=== PATIENT | female | born 1990 | race Caucasian/White ===

== ENCOUNTER 2016-10-27 22:45 | Emergency (ER) | payer OTHER ==
[~2016-10-27 22:45] MED LIST: MOTR200T44 PO; PERCOCET PO
[2016-10-28] MEDS ORDERED: ONDANSETRON 4MG/2ML VIAL (J2405) As Ordered ONE (01:12)
[2016-10-28] MEDS ORDERED: PANTOPRAZOLE 40MG INJ (PROTONIX) (C9113) As Ordered ONE (01:12)
[2016-10-28 01:25] LABS: BASO % 0.2 % (0.0-1.0); EOS # 0.2 K/mm3 (0.0-0.50); EOS % 1.6 % (0.0-3.0); LARGE UNSTAINED CELL # 0.1 K/mm3 (0.0-0.4); LARGE UNSTAINED CELL % 0.7 % (0.0-4.0); LYMPH # 0.8 K/mm3 (1.5-6.5); LYMPH % 5.3 % (24.0-44.0); MEAN CORPUSCULAR HEMOGLOBIN 29.9 pg (27.0-33.0); MEAN CORPUSCULAR HGB CONC 32.4 g/dl (32.0-36.5); MEAN CORPUSCULAR VOLUME 92.1 fl (80.0-96.0); MONO # 0.5 K/mm3 (0.0-0.8); MONO % 3.4 % (0.0-5.0); NEUTROPHILS # 13.8 K/mm3 (1.8-7.7); NEUTROPHILS % 88.9 % (36.0-66.0); PLATELET COUNT, AUTOMATED 229 k/mm3 (150-450); RED CELL DISTRIBUTION WIDTH 12.4 % (11.5-14.5); WHITE BLOOD COUNT 15.6 K/mm3 (4.0-10.0)
[2016-10-28 02:05] LABS: ALBUMIN 4.4 GM/DL (3.2-5.2); ALBUMIN/GLOBULIN RATIO 1.26 (1.00-1.93); ALKALINE PHOSPHATASE 88 U/L (45-117); ALT/SGPT 27 U/L (12-78); AMYLASE 47 U/L (25-115); ANION GAP 8 MEQ/L (8-16); AST/SGOT 19 U/L (15-37); BILIRUBIN,DIRECT 0.2 MG/DL (0.0-0.2); BILIRUBIN,TOTAL 0.8 MG/DL (0.2-1.0); BLOOD UREA NITROGEN 13 MG/DL (7-18); CALCIUM LEVEL 8.9 MG/DL (8.5-10.1); CARBON DIOXIDE LEVEL 25 MEQ/L (21-32); CHLORIDE LEVEL 105 MEQ/L (98-107); CREATININE FOR GFR 0.94 MG/DL (0.55-1.02); GLOMERULAR FILTRATION RATE > 60.0 (>60); GLUCOSE, FASTING 121 MG/DL (70-105); POTASSIUM SERUM 3.8 MEQ/L (3.5-5.1); SODIUM LEVEL 138 MEQ/L (136-145); TOTAL PROTEIN 7.9 GM/DL (6.4-8.2)
--- NOTE | 2016-10-28 02:38 | EDDOCDS ---
Nurse's Notes [facility] Name: Lexus Webb Age: 26 yrs Sex: Female : 1990 Arrival Date: 10/27/2016 Time: 22:45 Bed I5 / M5 [facility] Diagnosis: Vomiting;Diarrhea, unspecified Presentation: 10/27 22:50 Presenting complaint: Patient states: Patient reports that she has been vomiting and jmb have diarrhea for past three hours. Adult Sepsis Screening: The patient does not have new or worsening altered mentation. Patient's respiratory rate is less than 22. Systolic blood pressure is greater than 100. Patient has a qSOFA score of 0- Negative Sepsis Screen. Suicide/Homicide risk assessment- the patient denies having any suicidal and/or homicidal ideations and does not present with any other emotional, behavioral or mental health complaints. Status: Patient is not a sales and service advisor or dependent. Transition of care: patient was not received from another setting of care. 22:50 Acuity: CAMERON Level 4 [facility] 22:50 Method Of Arrival: Walkin/Carried/Asstd [facility] Triage Assessment: 22:51 General: Appears in no apparent distress. Pain: Denies pain. Pt Declines HIV testing. b Neurological: Level of Consciousness is awake, alert, obeys commands, Oriented to person, place, time, Speech is normal, Facial symmetry appears normal, Facial symmetry: tongue is midline. Respiratory: Airway is patent Respiratory effort is even, unlabored, Respiratory pattern is regular, symmetrical. GI: Abdomen is non- distended. Derm: Skin is pink, warm & dry. Musculoskeletal: Range of motion intact in all extremities. 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 Dicyclomine Unknown Oral Unknown daily - PMHx: none; - PSHx: ; Carpal Tunnel Repair- Bilateral; Tonsillectomy; - Social history: Smoking status: Patient uses tobacco products, heavy tobacco smoker. No barriers to communication noted, The patient speaks fluent Welsh, Speaks appropriately for age. - Family history: Not pertinent. - : The pt / caregiver states he / she is not on anticoagulants. Home medication list is obtained from the patient. - Exposure Risk Screening:: None identified. Screenin/07 01:25 Screening information is obtained from the patient. Fall risk: No risks identified. jmb Assistance ADL's: requires no assistance with activities of daily living. Abuse/DV Screen: The patient / caregiver reports he/she is: not in a situation that causes fear, pain or injury. Nutritional screening: No deficits noted. home support is adequate. 02:35 Advance Directives: Currently, there is no health care proxy. lf1 Assessment: 01:25 General: Appears in no apparent distress, Behavior is appropriate for age, cooperative. jmb Neurological: Level of Consciousness is awake, alert, obeys commands, Oriented to person, place, time, Speech is normal, Facial symmetry appears normal, Facial symmetry: tongue is midline. Cardiovascular: Capillary refill < 3 seconds Heart tones S1 S2 present Pulses are all present. Rhythm is regular. Respiratory: Airway is patent Respiratory effort is even, unlabored, Respiratory pattern is regular, symmetrical, Breath sounds are clear bilaterally. GI: Abdomen is non- distended Bowel sounds present X 4 quads. Abd is soft X 4 quads. Derm: Skin is pink, warm & dry. Musculoskeletal: Range of motion intact in all extremities. 01:26 General: During assessment and start of IV, patient informed that there was no site for jmb access in left antecubital. Patient suggested potentially going in right antecubital. Patient informed that it would be easier to stay on left side since the baskets are on wall and potential for hitting head could occur by this publications writer even with the bed moved out. Patient had vein present on left wrist, inserted 20 gauge needle and prior to insertion patient encouraged not to tense up or move as it makes it more difficulty for insertion of IV. Patient accessed on one attempt with 20 gauge needle but during lab draw started crying and stated that it was the worst blood draw ever and that is why she would have preferred this publications writer to start IV in right antecubital. Patient never once stated that she would prefer otherwise prior to insertion when explained safety concern for right AC. After labs drawn this publications writer left room with no complaints. . 02:15 General: Appears comfortable, Behavior is cooperative. Pain: Denies pain. Neurological: lf1 Level of Consciousness is awake, alert, obeys commands, Oriented to person, place, time. EENT: No deficits noted. Respiratory: Respiratory effort is even, unlabored. GI: Reports nausea has improved. Derm: Skin is pink, warm & dry. 02:35 General: Appears in no apparent distress, comfortable, Behavior is cooperative. Pain: lf1 Denies pain. Neurological: Level of Consciousness is awake, alert. Respiratory: Respiratory effort is even, unlabored. GI: Denies nausea, vomiting. Vital Signs: 10/27 22:47 BP 133 / 73; Pulse 104; Resp 18; Temp 99.6(O); Pulse Ox 99% on R/A; Weight 81.65 kg; dem1 Height 5 ft. 9 in. (175.26 cm); Pain 5/10; 10/28 02:22 BP 138 / 70; Pulse 82; Resp 18; Temp 98.8; Pulse Ox 97% ; Pain 0/10; ajs 02 22:47 Body Mass Index 26.58 (81.65 kg, 175.26 cm) [facility] Vitals: 10/27 22:47 Log In Time: October 27, 2016 at 22:44. [facility] ED Course: 22:46 Patient visited by Clair Wetzel. dem1 22:46 [facility] is Private Physician. dem1 22:46 Patient moved to Waiting dem1 22:47 Patient visited by Clair Wetzel. dem1 22:47 Patient moved to Pre RCE dem1 22:50 Triage Initiated jmb 10/28 00:02 Patient moved to MTA Wait sls1 00:34 Patient moved to I5 / M5 andie 00:58 Herber[facility] Gu[facility]C [facility] ck7 00:58 Min Nicole DO is Attending Physician. ck7 00:58 Patient visited by Herberth Gupta RPA-C. ck7 01:25 The patient / caregiver is instructed regarding the plan of care and ED course. jmb 01:25 Inserted saline lock: 20 gauge in left hand and blood collected. Labs drawn. (by ED jmb staff). Sent per order to lab. 01:27 Patient visited by Derek Vinson RN. jmb 02:06 Patient visited by Herberth Gupta RPA-C. ck7 02:16 Patient visited by Suki Jones RN. lf1 02:20 [facility] is Referral Physician. ck7 02:23 Patient visited by Whitney Royal. [facility] 02:34 Patient visited by Suki Jones RN. lf1 02:35 Discontinued IV lock intact, bleeding controlled, pressure dressing applied, No lf1 redness/swelling at site. No procedures done that require assistance. Administered Medications: 01:26 Drug: NS 0.9% 1000 ml [sodium chloride 0.9 % intravenous solution] Route: IV; Rate: lf1 bolus; Site: left wrist; 02:35 Follow up: IV Status: Infusion discontinued; IV Intake: 900ml lf1 01:26 Drug: Ondansetron 4 mg [ondansetron HCl 2 mg/mL intravenous solution (2 mL)] Route: lf1 IVP; Site: left wrist; 02:35 Follow up: Response: Nausea is resolved lf1 01:26 Drug: pantoprazole 40 mg [pantoprazole 40 mg intravenous solution] Route: IV; Rate: lf1 bolus; Site: left wrist; 01:46 Follow up: IV Status: Completed infusion [facility] 02:34 Follow up: IV Status: Completed infusion lf1 Point of Care Testing: Urine : 02:15 hCG Reading: Negative; Control Reading: Positive; lf1 Ranges: Intake: 02:35 IV: 900.00ml; Total: 900.00ml. lf1 Order Results: Lab Order: Amylase; SPEC'M 10/28/16 01:18 Test: AMYLASE; Value: 47; Range: 25-115; Units: U/L; Status: F Lab Order: Basic Metabolic Profile; SPEC'M 10/28/16 01:18 Test: GLUCOSE, FASTING; Value: 121; Range: 70-105; Abnormal: Above high normal; Units: MG/DL; Status: F Test: BLOOD UREA NITROGEN; Value: 13; Range: 7-18; Units: MG/DL; Status: F Test: CREATININE FOR GFR; Value: 0.94; Range: 0.55-1.02; Units: MG/DL; Status: F Test: GLOMERULAR FILTRATION RATE; Value: > 60.0; Range: >60; Status: F Test: SODIUM LEVEL; Value: 138; Range: 136-145; Units: MEQ/L; Status: F Test: POTASSIUM SERUM; Value: 3.8; Range: 3.5-5.1; Units: MEQ/L; Status: F Test: CHLORIDE LEVEL; Value: 105; Range: 98-107; Units: MEQ/L; Status: F Test: CARBON DIOXIDE LEVEL; Value: 25; Range: 21-32; Units: MEQ/L; Status: F Test: ANION GAP; Value: 8; Range: 8-16; Units: MEQ/L; Status: F Test: CALCIUM LEVEL; Value: 8.9; Range: 8.5-10.1; Units: MG/DL; Status: F Test Note: ; Units are mL/min/1.73 m2 Chronic Kidney Disease Staging per NKF: Stage I & II GFR >=60 Normal to Mildly Decreased Stage III GFR 30-59 Moderately Decreased Stage IV GFR 15-29 Severely Decreased Stage V GFR <15 Very Little GFR Left ESRD GFR <15 on COLON AND RECTAL SURGEON Lab Order: CBC with Diff; SPEC'M 10/28/16 01:18 Test: WHITE BLOOD COUNT; Value: 15.6; Range: 4.0-10.0; Abnormal: Above high normal; Units: K/mm3; Status: F Test: RED BLOOD COUNT; Value: 5.13; Range: 4.00-5.40; Units: M/mm3; Status: F Test: HEMOGLOBIN; Value: 15.3; Range: 12.0-16.0; Units: g/dl; Status: F Test: HEMATOCRIT; Value: 47.2; Range: 36.0-47.0; Abnormal: Above high normal; Units: %; Status: F Test: MEAN CORPUSCULAR VOLUME; Value: 92.1; Range: 80.0-96.0; Units: fl; Status: F Test: MEAN CORPUSCULAR HEMOGLOBIN; Value: 29.9; Range: 27.0-33.0; Units: pg; Status: F Test: MEAN CORPUSCULAR HGB CONC; Value: 32.4; Range: 32.0-36.5; Units: g/dl; Status: F Test: RED CELL DISTRIBUTION WIDTH; Value: 12.4; Range: 11.5-14.5; Units: %; Status: F Test: PLATELET COUNT, AUTOMATED; Value: 229; Range: 150-450; Units: k/mm3; Status: F Test: NEUTROPHILS %; Value: 88.9; Range: 36.0-66.0; Abnormal: Above high normal; Units: %; Status: F Test: LYMPH %; Value: 5.3; Range: 24.0-44.0; Abnormal: Below low normal; Units: %; Status: F Test: MONO %; Value: 3.4; Range: 0.0-5.0; Units: %; Status: F Test: EOS %; Value: 1.6; Range: 0.0-3.0; Units: %; Status: F Test: BASO %; Value: 0.2; Range: 0.0-1.0; Units: %; Status: F Test: LARGE UNSTAINED CELL %; Value: 0.7; Range: 0.0-4.0; Units: %; Status: F Test: NEUTROPHILS #; Value: 13.8; Range: 1.8-7.7; Abnormal: Above high normal; Units: K/mm3; Status: F Test: LYMPH #; Value: 0.8; Range: 1.5-6.5; Abnormal: Below low normal; Units: K/mm3; Status: F Test: MONO #; Value: 0.5; Range: 0.0-0.8; Units: K/mm3; Status: F Test: EOS #; Value: 0.2; Range: 0.0-0.50; Units: K/mm3; Status: F Test: BASO #; Value: 0.0; Range: 0.0-0.2; Units: K/mm3; Status: F Test: LARGE UNSTAINED CELL #; Value: 0.1; Range: 0.0-0.4; Units: K/mm3; Status: F Lab Order: Lipase; SPEC'M 10/28/16 01:18 Test: LIPASE; Value: 109; Range: 73-393; Units: U/L; Status: F Lab Order: Liver Profile; SPEC'M 10/28/16 01:18 Test: AST/SGOT; Value: 19; Range: 15-37; Units: U/L; Status: F Test: ALT/SGPT; Value: 27; Range: 12-78; Units: U/L; Status: F Test: ALKALINE PHOSPHATASE; Value: 88; Range: 45-117; Units: U/L; Status: F Test: BILIRUBIN,TOTAL; Value: 0.8; Range: 0.2-1.0; Units: MG/DL; Status: F Test: BILIRUBIN,DIRECT; Value: 0.2; Range: 0.0-0.2; Units: MG/DL; Status: F Test: TOTAL PROTEIN; Value: 7.9; Range: 6.4-8.2; Units: GM/DL; Status: F Test: ALBUMIN; Value: 4.4; Range: 3.2-5.2; Units: GM/DL; Status: F Test: ALBUMIN/GLOBULIN RATIO; Value: 1.26; Range: 1.00-1.93; Status: F Outcome: 02:20 Discharge ordered by Provider. ck7 02:35 Discharge Assessment: Patient awake, alert and oriented x 3. No cognitive and/or lf1 functional deficits noted. Patient verbalized understanding of disposition instructions. Patient awake and alert. Oriented to person, place and time. Patient verbalized understanding of disposition instructions. Patient has no functional deficits. patient administered narcotics - no. The following High Risk Discharge criteria are identified: None. Discharged to home ambulatory, with friend. Condition: improved. Discharge instructions given to patient, Instructed on discharge instructions, follow up and referral plans. medication usage, diet, Demonstrated understanding of instructions, medications, Pt was receptive of discharge instructions/ teaching. Prescriptions given X 2. No special radiology studies were completed. Property :Personal belongings accompany Pt. 02:37 Patient left the ED. lf1 Signatures: Suki Jones,RN RN lf1 Sienna Martin, Whitney Mcintyre Shannon RN RN sls1 Clair Wetzel1 Herberth Gupta, RPA-C RPA-Cck7 Derek VinsonRN Pamela Montoya LPN LPN sl Corrections: (The following items were deleted from the chart) 10/27 22:52 22:51 Allergies: No known drug Allergies; ant cain 22:52 22:51 Home Meds: none; ant cain MTDD
--- NOTE | 2016-10-28 02:38 | EDDOCDS ---
Physician Documentation [facility] Name: Lexus Webb Age: 26 yrs Sex: Female : 1990 Arrival Date: 10/27/2016 Time: 22:45 Bed I5 / M5 Private [facility] Disposition: 10/28/16 02:20 Discharged to Home/Self Care. Impression: Vomiting, Diarrhea, unspecified. - Condition is Stable. - Discharge Instructions: Food Choices to Help Relieve Diarrhea, Adult, Diarrhea, Nausea and Vomiting. - Prescriptions for Prilosec 20 mg Oral Capsule - take 1 capsule by ORAL route once daily; 10 capsule. ZOFRAN ODT 4 mg - dissolve 1 tablet by ORAL route 4 times per day As needed do not chew, do not swallow whole; 10 tablet. - Medication Reconciliation, Local Pharmacy Hours form. - Follow up: [facility]; When: Tomorrow; Reason: Recheck today's complaints, Continuance of care. - Problem is new. - Symptoms have improved. - Notes: USE MEDICATIONS INSTRUTCED, FOLLOW UP WITH YOUR DOCTOR TOMORROW, RETURN TO THE ER IF THE SYMPTOMS WORSEN OR BECOME CONCERNING Historical: - Home Meds: 1. Dicyclomine Unknown Oral Unknown daily - PMHx: none; - PSHx: ; Carpal Tunnel Repair- Bilateral; Tonsillectomy; - Social history: Smoking status: Patient uses tobacco products, heavy tobacco smoker. No barriers to communication noted, The patient speaks fluent Turkmen, Speaks appropriately for age. - Family history: Not pertinent. - : The pt / caregiver states he / she is not on anticoagulants. Home medication list is obtained from the patient. - Exposure Risk Screening:: None identified. SUPERVISOR ADVICE: 10/27 22:52 LMP 10/20/2016 [facility] Vital Signs: 22:47 BP 133 / 73; Pulse 104; Resp 18; Temp 99.6(O); Pulse Ox 99% on R/A; Weight 81.65 kg / dem1 180.01 lbs; Height 5 ft. 9 in. (175.26 cm); Pain 5/10; 10/28 02:22 BP 138 / 70; Pulse 82; Resp 18; Temp 98.8; Pulse Ox 97% ; Pain 0/10; ajs 02/06 22:47 Body Mass Index 26.58 (81.65 kg, 175.26 cm) dem1 MDM: 01:04 Undress patient appropriately for examination ordered. ck7 01:04 IV Saline Lock ordered. ck7 01:04 NS 0.9% 1000 ml IV at bolus once ordered. ck7 01:04 Ondansetron 4 mg IVP once ordered. ck7 01:04 pantoprazole 40 mg IV at bolus once ordered. ck7 01:04 UCG by Nursing ordered. ck7 01:05 Amylase Ordered. EDMS 01:05 Basic Metabolic Profile Ordered. EDMS 01:05 CBC with Diff Ordered. EDMS 01:05 Lipase Ordered. EDMS 01:05 Liver Profile Ordered. EDMS 01:05 NOTHING BY MOUTH+DIET ordered. EDMS 01:29 Financial registration complete. pm4 02:14 Basic Metabolic Profile Reviewed. ck7 02:14 CBC with Diff Reviewed. ck7 02:14 Amylase Reviewed. ck7 02:14 Lipase Reviewed. ck7 02:14 Liver Profile Reviewed. ck7 Point of Care Testing: Urine : 02:15 hCG Reading: Negative; Control Reading: Positive; lf1 Ranges: Administered Medications: 01:26 Drug: NS 0.9% 1000 ml [sodium chloride 0.9 % intravenous solution] Route: IV; Rate: lf1 bolus; Site: left wrist; 02:35 Follow up: IV Status: Infusion discontinued; IV Intake: 900ml lf1 01:26 Drug: Ondansetron 4 mg [ondansetron HCl 2 mg/mL intravenous solution (2 mL)] Route: lf1 IVP; Site: left wrist; 02:35 Follow up: Response: Nausea is resolved lf1 01:26 Drug: pantoprazole 40 mg [pantoprazole 40 mg intravenous solution] Route: IV; Rate: lf1 bolus; Site: left wrist; 01:46 Follow up: IV Status: Completed infusion [facility] 02:34 Follow up: IV Status: Completed infusion lf1 Signatures: Dispatcher [employer] Suki Solorzano RN RN lf1 Herberth Gupta, RPA-C RPA-Cck7 Derek VinsonRN RN Michael Smith, Reg Reg pm4 Pamela Maynard LPN [facility] The chart was reviewed and I authenticate all verbal orders and agree with the evaluation and treatment provided.Corrections: (The following items were deleted from the chart) 10/27 2252 22:51 Allergies: No known drug Allergies; ant cain 22:51 Home Meds: none; ant cain DANKD
--- NOTE | 2016-10-30 03:39 | EDDOCDS ---
Physician Documentation [facility] Name: Lexus Webb Age: 26 yrs Sex: Female : 1990 Arrival Date: 10/27/2016 Time: 22:45 Bed I5 / M5 Private [facility] Disposition: 10/28/16 02:20 Discharged to Home/Self Care. Impression: Vomiting, Diarrhea, unspecified. - Condition is Stable. - Discharge Instructions: Food Choices to Help Relieve Diarrhea, Adult, Diarrhea, Nausea and Vomiting. - Prescriptions for Prilosec 20 mg Oral Capsule - take 1 capsule by ORAL route once daily; 10 capsule. ZOFRAN ODT 4 mg - dissolve 1 tablet by ORAL route 4 times per day As needed do not chew, do not swallow whole; 10 tablet. - Medication Reconciliation, Local Pharmacy Hours form. - Follow up: [facility]; When: Tomorrow; Reason: Recheck today's complaints, Continuance of care. - Problem is new. - Symptoms have improved. - Notes: USE MEDICATIONS INSTRUTCED, FOLLOW UP WITH YOUR DOCTOR TOMORROW, RETURN TO THE ER IF THE SYMPTOMS WORSEN OR BECOME CONCERNING Historical: - Home Meds: 1. Dicyclomine Unknown Oral Unknown daily - PMHx: none; - PSHx: ; Carpal Tunnel Repair- Bilateral; Tonsillectomy; - Social history: Smoking status: Patient uses tobacco products, heavy tobacco smoker. No barriers to communication noted, The patient speaks fluent Ethiopian, Speaks appropriately for age. - Family history: Not pertinent. - : The pt / caregiver states he / she is not on anticoagulants. Home medication list is obtained from the patient. - Exposure Risk Screening:: None identified. ELECTRICAL ELECTRONICS TECHNICIAN: 10/27 22:52 LMP 10/20/2016 [facility] Vital Signs: 22:47 BP 133 / 73; Pulse 104; Resp 18; Temp 99.6(O); Pulse Ox 99% on R/A; Weight 81.65 kg / dem1 180.01 lbs; Height 5 ft. 9 in. (175.26 cm); Pain 5/10; 10/28 02:22 BP 138 / 70; Pulse 82; Resp 18; Temp 98.8; Pulse Ox 97% ; Pain 0/10; ajs 02/06 22:47 Body Mass Index 26.58 (81.65 kg, 175.26 cm) dem1 MDM: 01:04 Undress patient appropriately for examination ordered. ck7 01:04 IV Saline Lock ordered. ck7 01:04 NS 0.9% 1000 ml IV at bolus once ordered. ck7 01:04 Ondansetron 4 mg IVP once ordered. ck7 01:04 pantoprazole 40 mg IV at bolus once ordered. ck7 01:04 UCG by Nursing ordered. ck7 01:05 Amylase Ordered. EDMS 01:05 Basic Metabolic Profile Ordered. EDMS 01:05 CBC with Diff Ordered. EDMS 01:05 Lipase Ordered. EDMS 01:05 Liver Profile Ordered. EDMS 01:05 NOTHING BY MOUTH+DIET ordered. EDMS 01:29 Financial registration complete. pm4 02:14 Basic Metabolic Profile Reviewed. ck7 02:14 CBC with Diff Reviewed. ck7 02:14 Amylase Reviewed. ck7 02:14 Lipase Reviewed. ck7 02:14 Liver Profile Reviewed. ck7 02:58 [facility] [place] Agreement was scanned into [employer] and attached to record. pm4 11:17 T-Sheet-- Draft Copy was scanned into MP[employer] and attached to record. Point of Care Testing: Urine : 02:15 hCG Reading: Negative; Control Reading: Positive; lf1 Ranges: Administered Medications: 01:26 Drug: NS 0.9% 1000 ml [sodium chloride 0.9 % intravenous solution] Route: IV; Rate: lf1 bolus; Site: left wrist; 02:35 Follow up: IV Status: Infusion discontinued; IV Intake: 900ml lf1 01:26 Drug: Ondansetron 4 mg [ondansetron HCl 2 mg/mL intravenous solution (2 mL)] Route: lf1 IVP; Site: left wrist; 02:35 Follow up: Response: Nausea is resolved lf1 01:26 Drug: pantoprazole 40 mg [pantoprazole 40 mg intravenous solution] Route: IV; Rate: lf1 bolus; Site: left wrist; 01:46 Follow up: IV Status: Completed infusion [facility] 02:34 Follow up: IV Status: Completed infusion lf1 Signatures: Dispatcher [employer] EDMS Catie Hahn, Reg Reg gb Suki Jones,BRAD RN lf1 Herberth Gupta RPA-C RPA-[facility]7 Derek Vinson,RN RN Michael Smith, Reg Reg pm4 Pamela Maynard LPN The chart was reviewed and I authenticate all verbal orders and agree with the evaluation and treatment provided.Corrections: (The following items were deleted from the chart) 10/27 22:52 22:51 Allergies: No known drug Allergies; ant cain 22:52 22:51 Home Meds: none; ant cain Attachments: 10/28 02:58 [facility] [place] Agreement pm4 11:17 T-Sheet-- Draft Copy gb Chart Complete MTDD
--- NOTE | 2016-10-30 03:39 | EDDOCDS ---
Nurse's Notes [facility] Name: Lexus Webb Age: 26 yrs Sex: Female : 1990 Arrival Date: 10/27/2016 Time: 22:45 Bed I5 / M5 Private [facility] Diagnosis: Vomiting;Diarrhea, unspecified Presentation: 10/27 22:50 Presenting complaint: Patient states: Patient reports that she has been vomiting and jmb have diarrhea for past three hours. Adult Sepsis Screening: The patient does not have new or worsening altered mentation. Patient's respiratory rate is less than 22. Systolic blood pressure is greater than 100. Patient has a qSOFA score of 0- Negative Sepsis Screen. Suicide/Homicide risk assessment- the patient denies having any suicidal and/or homicidal ideations and does not present with any other emotional, behavioral or mental health complaints. Status: Patient is not a automobile service station manager or dependent. Transition of care: patient was not received from another setting of care. 22:50 Acuity: CAMERON Level 4 [facility] 22:50 Method Of Arrival: Walkin/Carried/Asstd [facility] Triage Assessment: 22:51 General: Appears in no apparent distress. Pain: Denies pain. Pt Declines HIV testing. b Neurological: Level of Consciousness is awake, alert, obeys commands, Oriented to person, place, time, Speech is normal, Facial symmetry appears normal, Facial symmetry: tongue is midline. Respiratory: Airway is patent Respiratory effort is even, unlabored, Respiratory pattern is regular, symmetrical. GI: Abdomen is non- distended. Derm: Skin is pink, warm & dry. Musculoskeletal: Range of motion intact in all extremities. [employer]: 22:52 LMP 10/20/2016 [facility] Historical: - Home Meds: 1. Dicyclomine Unknown Oral Unknown daily - PMHx: none; - PSHx: ; Carpal Tunnel Repair- Bilateral; Tonsillectomy; - Social history: Smoking status: Patient uses tobacco products, heavy tobacco smoker. No barriers to communication noted, The patient speaks fluent Uzbek, Speaks appropriately for age. - Family history: Not pertinent. - : The pt / caregiver states he / she is not on anticoagulants. Home medication list is obtained from the patient. - Exposure Risk Screening:: None identified. Screenin/07 01:25 Screening information is obtained from the patient. Fall risk: No risks identified. jmb Assistance ADL's: requires no assistance with activities of daily living. Abuse/DV Screen: The patient / caregiver reports he/she is: not in a situation that causes fear, pain or injury. Nutritional screening: No deficits noted. home support is adequate. 02:35 Advance Directives: Currently, there is no health care proxy. lf1 Assessment: 01:25 General: Appears in no apparent distress, Behavior is appropriate for age, cooperative. jmb Neurological: Level of Consciousness is awake, alert, obeys commands, Oriented to person, place, time, Speech is normal, Facial symmetry appears normal, Facial symmetry: tongue is midline. Cardiovascular: Capillary refill < 3 seconds Heart tones S1 S2 present Pulses are all present. Rhythm is regular. Respiratory: Airway is patent Respiratory effort is even, unlabored, Respiratory pattern is regular, symmetrical, Breath sounds are clear bilaterally. GI: Abdomen is non- distended Bowel sounds present X 4 quads. Abd is soft X 4 quads. Derm: Skin is pink, warm & dry. Musculoskeletal: Range of motion intact in all extremities. 01:26 General: During assessment and start of IV, patient informed that there was no site for jmb access in left antecubital. Patient suggested potentially going in right antecubital. Patient informed that it would be easier to stay on left side since the baskets are on wall and potential for hitting head could occur by this curriculum writer even with the bed moved out. Patient had vein present on left wrist, inserted 20 gauge needle and prior to insertion patient encouraged not to tense up or move as it makes it more difficulty for insertion of IV. Patient accessed on one attempt with 20 gauge needle but during lab draw started crying and stated that it was the worst blood draw ever and that is why she would have preferred this curriculum writer to start IV in right antecubital. Patient never once stated that she would prefer otherwise prior to insertion when explained safety concern for right AC. After labs drawn this curriculum writer left room with no complaints. . 02:15 General: Appears comfortable, Behavior is cooperative. Pain: Denies pain. Neurological: lf1 Level of Consciousness is awake, alert, obeys commands, Oriented to person, place, time. EENT: No deficits noted. Respiratory: Respiratory effort is even, unlabored. GI: Reports nausea has improved. Derm: Skin is pink, warm & dry. 02:35 General: Appears in no apparent distress, comfortable, Behavior is cooperative. Pain: lf1 Denies pain. Neurological: Level of Consciousness is awake, alert. Respiratory: Respiratory effort is even, unlabored. GI: Denies nausea, vomiting. Vital Signs: 10/27 22:47 BP 133 / 73; Pulse 104; Resp 18; Temp 99.6(O); Pulse Ox 99% on R/A; Weight 81.65 kg; dem1 Height 5 ft. 9 in. (175.26 cm); Pain 5/10; 10/28 02:22 BP 138 / 70; Pulse 82; Resp 18; Temp 98.8; Pulse Ox 97% ; Pain 0/10; ajs 02 22:47 Body Mass Index 26.58 (81.65 kg, 175.26 cm) [facility] Vitals: 10/27 22:47 Log In Time: October 27, 2016 at 22:44. [facility] ED Course: 22:46 Patient visited by Clair Wetzel. dem1 22:46 [facility] is Private Physician. dem1 22:46 Patient moved to Waiting dem1 22:47 Patient visited by Clair Wetzel. dem1 22:47 Patient moved to Pre RCE dem1 22:50 Triage Initiated jmb 10/28 00:02 Patient moved to MTA Wait sls1 00:34 Patient moved to I5 / M5 andie 00:58 Herberth Gupta [facility]-C [facility] ck7 00:58 Min Nicole DO is Attending Physician. ck7 00:58 Patient visited by Herberth Gupta RPA-C. ck7 01:25 The patient / caregiver is instructed regarding the plan of care and ED course. jmb 01:25 Inserted saline lock: 20 gauge in left hand and blood collected. Labs drawn. (by ED jmb staff). Sent per order to lab. 01:27 Patient visited by Derek Vinson RN. jmb 02:06 Patient visited by Herberth Gupta RPA-C. ck7 02:16 Patient visited by Suki Jones RN. lf1 02:20 [facility] is Referral Physician. ck7 02:23 Patient visited by Whitney Royal. [facility] 02:34 Patient visited by Suki Jones RN. lf1 02:35 Discontinued IV lock intact, bleeding controlled, pressure dressing applied, No lf1 redness/swelling at site. No procedures done that require assistance. 02:58 [facility] [place] Agreement was scanned into ForeSee and attached to record. pm4 11:17 T-Sheet-- Draft Copy was scanned into ForeSee and attached to record. gb Administered Medications: 01:26 Drug: NS 0.9% 1000 ml [sodium chloride 0.9 % intravenous solution] Route: IV; Rate: lf1 bolus; Site: left wrist; 02:35 Follow up: IV Status: Infusion discontinued; IV Intake: 900ml lf1 01:26 Drug: Ondansetron 4 mg [ondansetron HCl 2 mg/mL intravenous solution (2 mL)] Route: lf1 IVP; Site: left wrist; 02:35 Follow up: Response: Nausea is resolved lf1 01:26 Drug: pantoprazole 40 mg [pantoprazole 40 mg intravenous solution] Route: IV; Rate: lf1 bolus; Site: left wrist; 01:46 Follow up: IV Status: Completed infusion [facility] 02:34 Follow up: IV Status: Completed infusion lf1 Point of Care Testing: Urine : 02:15 hCG Reading: Negative; Control Reading: Positive; lf1 Ranges: Intake: 02:35 IV: 900.00ml; Total: 900.00ml. lf1 Order Results: Lab Order: Amylase; SPEC'M 10/28/16 01:18 Test: AMYLASE; Value: 47; Range: 25-115; Units: U/L; Status: F Lab Order: Basic Metabolic Profile; SPEC'M 10/28/16 01:18 Test: GLUCOSE, FASTING; Value: 121; Range: 70-105; Abnormal: Above high normal; Units: MG/DL; Status: F Test: BLOOD UREA NITROGEN; Value: 13; Range: 7-18; Units: MG/DL; Status: F Test: CREATININE FOR GFR; Value: 0.94; Range: 0.55-1.02; Units: MG/DL; Status: F Test: GLOMERULAR FILTRATION RATE; Value: > 60.0; Range: >60; Status: F Test: SODIUM LEVEL; Value: 138; Range: 136-145; Units: MEQ/L; Status: F Test: POTASSIUM SERUM; Value: 3.8; Range: 3.5-5.1; Units: MEQ/L; Status: F Test: CHLORIDE LEVEL; Value: 105; Range: 98-107; Units: MEQ/L; Status: F Test: CARBON DIOXIDE LEVEL; Value: 25; Range: 21-32; Units: MEQ/L; Status: F Test: ANION GAP; Value: 8; Range: 8-16; Units: MEQ/L; Status: F Test: CALCIUM LEVEL; Value: 8.9; Range: 8.5-10.1; Units: MG/DL; Status: F Test Note: ; Units are mL/min/1.73 m2 Chronic Kidney Disease Staging per NKF: Stage I & II GFR >=60 Normal to Mildly Decreased Stage III GFR 30-59 Moderately Decreased Stage IV GFR 15-29 Severely Decreased Stage V GFR <15 Very Little GFR Left ESRD GFR <15 on HI RANGER OPERATOR Lab Order: CBC with Diff; SPEC'M 10/28/16 01:18 Test: WHITE BLOOD COUNT; Value: 15.6; Range: 4.0-10.0; Abnormal: Above high normal; Units: K/mm3; Status: F Test: RED BLOOD COUNT; Value: 5.13; Range: 4.00-5.40; Units: M/mm3; Status: F Test: HEMOGLOBIN; Value: 15.3; Range: 12.0-16.0; Units: g/dl; Status: F Test: HEMATOCRIT; Value: 47.2; Range: 36.0-47.0; Abnormal: Above high normal; Units: %; Status: F Test: MEAN CORPUSCULAR VOLUME; Value: 92.1; Range: 80.0-96.0; Units: fl; Status: F Test: MEAN CORPUSCULAR HEMOGLOBIN; Value: 29.9; Range: 27.0-33.0; Units: pg; Status: F Test: MEAN CORPUSCULAR HGB CONC; Value: 32.4; Range: 32.0-36.5; Units: g/dl; Status: F Test: RED CELL DISTRIBUTION WIDTH; Value: 12.4; Range: 11.5-14.5; Units: %; Status: F Test: PLATELET COUNT, AUTOMATED; Value: 229; Range: 150-450; Units: k/mm3; Status: F Test: NEUTROPHILS %; Value: 88.9; Range: 36.0-66.0; Abnormal: Above high normal; Units: %; Status: F Test: LYMPH %; Value: 5.3; Range: 24.0-44.0; Abnormal: Below low normal; Units: %; Status: F Test: MONO %; Value: 3.4; Range: 0.0-5.0; Units: %; Status: F Test: EOS %; Value: 1.6; Range: 0.0-3.0; Units: %; Status: F Test: BASO %; Value: 0.2; Range: 0.0-1.0; Units: %; Status: F Test: LARGE UNSTAINED CELL %; Value: 0.7; Range: 0.0-4.0; Units: %; Status: F Test: NEUTROPHILS #; Value: 13.8; Range: 1.8-7.7; Abnormal: Above high normal; Units: K/mm3; Status: F Test: LYMPH #; Value: 0.8; Range: 1.5-6.5; Abnormal: Below low normal; Units: K/mm3; Status: F Test: MONO #; Value: 0.5; Range: 0.0-0.8; Units: K/mm3; Status: F Test: EOS #; Value: 0.2; Range: 0.0-0.50; Units: K/mm3; Status: F Test: BASO #; Value: 0.0; Range: 0.0-0.2; Units: K/mm3; Status: F Test: LARGE UNSTAINED CELL #; Value: 0.1; Range: 0.0-0.4; Units: K/mm3; Status: F Lab Order: Lipase; SPEC'M 10/28/16 01:18 Test: LIPASE; Value: 109; Range: 73-393; Units: U/L; Status: F Lab Order: Liver Profile; SPEC'10/28/16 01:18 Test: AST/SGOT; Value: 19; Range: 15-37; Units: U/L; Status: F Test: ALT/SGPT; Value: 27; Range: 12-78; Units: U/L; Status: F Test: ALKALINE PHOSPHATASE; Value: 88; Range: 45-117; Units: U/L; Status: F Test: BILIRUBIN,TOTAL; Value: 0.8; Range: 0.2-1.0; Units: MG/DL; Status: F Test: BILIRUBIN,DIRECT; Value: 0.2; Range: 0.0-0.2; Units: MG/DL; Status: F Test: TOTAL PROTEIN; Value: 7.9; Range: 6.4-8.2; Units: GM/DL; Status: F Test: ALBUMIN; Value: 4.4; Range: 3.2-5.2; Units: GM/DL; Status: F Test: ALBUMIN/GLOBULIN RATIO; Value: 1.26; Range: 1.00-1.93; Status: F Outcome: 02:20 Discharge ordered by Provider. ck7 02:35 Discharge Assessment: Patient awake, alert and oriented x 3. No cognitive and/or lf1 functional deficits noted. Patient verbalized understanding of disposition instructions. Patient awake and alert. Oriented to person, place and time. Patient verbalized understanding of disposition instructions. Patient has no functional deficits. patient administered narcotics - no. The following High Risk Discharge criteria are identified: None. Discharged to home ambulatory, with friend. Condition: improved. Discharge instructions given to patient, Instructed on discharge instructions, follow up and referral plans. medication usage, diet, Demonstrated understanding of instructions, medications, Pt was receptive of discharge instructions/ teaching. Prescriptions given X 2. No special radiology studies were completed. Property :Personal belongings accompany Pt. 02:37 Patient left the ED. lf1 Signatures: Catie Hahn, Reg Reg gb Suki Jones,RN RN lf1 Sienna Martin, SHARK BIOLOGIST SHARK BIOLOGIST Whitney Lara Shannon, RN RN sls1 Clair Wetzel dem1 Herberth Gupta, SPIKE-C RPA-Jaden7 Derek Vinson,RN RN Pamela Lauren LPN LPN slm Montondo, Paul, Reg Reg pm4 Corrections: (The following items were deleted from the chart) 10/27 22:52 22:51 Allergies: No known drug Allergies; ant cain 22:52 22:51 Home Meds: none; jmb jmb Chart Complete MTDD
--- NOTE | 2016-10-30 03:39 | EDDOCDS ---
Physician Documentation [facility] Name: Lexus Webb Age: 26 yrs Sex: Female : 1990 Arrival Date: 10/27/2016 Time: 22:45 Bed I5 / M5 [facility] Disposition: 10/28/16 02:20 Discharged to Home/Self Care. Impression: Vomiting, Diarrhea, unspecified. - Condition is Stable. - Discharge Instructions: Food Choices to Help Relieve Diarrhea, Adult, Diarrhea, Nausea and Vomiting. - Prescriptions for Prilosec 20 mg Oral Capsule - take 1 capsule by ORAL route once daily; 10 capsule. ZOFRAN ODT 4 mg - dissolve 1 tablet by ORAL route 4 times per day As needed do not chew, do not swallow whole; 10 tablet. - Medication Reconciliation, Local Pharmacy Hours form. - Follow up: [facility]; When: Tomorrow; Reason: Recheck today's complaints, Continuance of care. - Problem is new. - Symptoms have improved. - Notes: USE MEDICATIONS INSTRUTCED, FOLLOW UP WITH YOUR DOCTOR TOMORROW, RETURN TO THE ER IF THE SYMPTOMS WORSEN OR BECOME CONCERNING Historical: - Home Meds: 1. Dicyclomine Unknown Oral Unknown daily - PMHx: none; - PSHx: ; Carpal Tunnel Repair- Bilateral; Tonsillectomy; - Social history: Smoking status: Patient uses tobacco products, heavy tobacco smoker. No barriers to communication noted, The patient speaks fluent Burmese, Speaks appropriately for age. - Family history: Not pertinent. - : The pt / caregiver states he / she is not on anticoagulants. Home medication list is obtained from the patient. - Exposure Risk Screening:: None identified. BOOKING MANAGER: 10/27 22:52 LMP 10/20/2016 [facility] Vital Signs: 22:47 BP 133 / 73; Pulse 104; Resp 18; Temp 99.6(O); Pulse Ox 99% on R/A; Weight 81.65 kg / dem1 180.01 lbs; Height 5 ft. 9 in. (175.26 cm); Pain 5/10; 10/28 02:22 BP 138 / 70; Pulse 82; Resp 18; Temp 98.8; Pulse Ox 97% ; Pain 0/10; ajs 02/06 22:47 Body Mass Index 26.58 (81.65 kg, 175.26 cm) dem1 MDM: 01:04 Undress patient appropriately for examination ordered. ck7 01:04 IV Saline Lock ordered. ck7 01:04 NS 0.9% 1000 ml IV at bolus once ordered. ck7 01:04 Ondansetron 4 mg IVP once ordered. ck7 01:04 pantoprazole 40 mg IV at bolus once ordered. ck7 01:04 UCG by Nursing ordered. ck7 01:05 Amylase Ordered. EDMS 01:05 Basic Metabolic Profile Ordered. EDMS 01:05 CBC with Diff Ordered. EDMS 01:05 Lipase Ordered. EDMS 01:05 Liver Profile Ordered. EDMS 01:05 NOTHING BY MOUTH+DIET ordered. EDMS 01:29 Financial registration complete. pm4 02:14 Basic Metabolic Profile Reviewed. ck7 02:14 CBC with Diff Reviewed. ck7 02:14 Amylase Reviewed. ck7 02:14 Lipase Reviewed. ck7 02:14 Liver Profile Reviewed. ck7 02:58 [facility] [place] Agreement was scanned into Sandag and attached to record. pm4 11:17 T-Sheet-- Draft Copy was scanned into Sandag and attached to record. Point of Care Testing: Urine : 02:15 hCG Reading: Negative; Control Reading: Positive; lf1 Ranges: Administered Medications: 01:26 Drug: NS 0.9% 1000 ml [sodium chloride 0.9 % intravenous solution] Route: IV; Rate: lf1 bolus; Site: left wrist; 02:35 Follow up: IV Status: Infusion discontinued; IV Intake: 900ml lf1 01:26 Drug: Ondansetron 4 mg [ondansetron HCl 2 mg/mL intravenous solution (2 mL)] Route: lf1 IVP; Site: left wrist; 02:35 Follow up: Response: Nausea is resolved lf1 01:26 Drug: pantoprazole 40 mg [pantoprazole 40 mg intravenous solution] Route: IV; Rate: lf1 bolus; Site: left wrist; 01:46 Follow up: IV Status: Completed infusion [facility] 02:34 Follow up: IV Status: Completed infusion lf1 Signatures: Dispatcher [employer] EDMS Catie Hahn, Reg Reg gb Suki Jones,BRAD RN lf1 Herberth Gupta RPA-C R[facility]7 Derek Vinson,RN RN Michael Smith, Reg Reg pm4 Pamela Maynard LPN The chart was reviewed and I authenticate all verbal orders and agree with the evaluation and treatment provided.Corrections: (The following items were deleted from the chart) 10/27 22:52 22:51 Allergies: No known drug Allergies; ant cain 22:52 22:51 Home Meds: none; ant cain Attachments: 10/28 02:58 [facility] [place] Agreement pm4 11:17 T-Sheet-- Draft Copy gb Chart Complete MTDD
== END 2016-10-28 02:37 | disposition home or self-care (01) ==
LOC: M ED 22:45
DX: R11.10 Vomiting, unspecified (principal); R19.7 Diarrhea, unspecified
CPT/HCPCS: 36415; 80048; 80076; 81025; 82150; 83690; 85025; 96365; 96375; 99284; C9113; J2405

== ENCOUNTER 2017-04-28 10:31 | Day surgery (SDC) | payer OTHER ==
[~2017-04-28] VITALS: Ht 172.7 cm; Wt 79.4 kg
[~2017-04-28 10:31] MED LIST changes: +MELO7.5T7 PO; +NAPR500T3 PO; +NEXP1IMP SC
[2017-04-28] MEDS ORDERED: NS 1,000 ML IV SCH (11:00)
[2017-04-28] MEDS ORDERED: LR 1,000 ML IV SCH ×2 (11:00→14:00)
[2017-04-28] MEDS ORDERED: ACETAMINOPHEN 650 MG SUPP PR ONE (11:00)
[2017-04-28 11:16] LABS: MEAN CORPUSCULAR HEMOGLOBIN 31.7 pg (27.0-33.0); MEAN CORPUSCULAR HGB CONC 34.3 g/dl (32.0-36.5); MEAN CORPUSCULAR VOLUME 92.5 fl (80.0-96.0); RED CELL DISTRIBUTION WIDTH 12.2 % (11.5-14.5); WHITE BLOOD COUNT 8.8 K/mm3 (4.0-10.0)
[2017-04-28] MEDS ORDERED: TRAZ50TA11 (11:20)
[2017-04-28] MEDS ORDERED: SERT-155 (11:20)
[2017-04-28] MEDS ORDERED: RANI150T (11:20)
[2017-04-28 11:35] LABS: ANION GAP 4 MEQ/L (8-16); BLOOD UREA NITROGEN 10 MG/DL (7-18); CALCIUM LEVEL 8.9 MG/DL (8.5-10.1); CARBON DIOXIDE LEVEL 30 MEQ/L (21-32); CHLORIDE LEVEL 107 MEQ/L (98-107); CREATININE FOR GFR 0.77 MG/DL (0.55-1.02); GLOMERULAR FILTRATION RATE > 60.0 (>60); GLUCOSE, FASTING 87 MG/DL (70-105); HCG, SERUM QUANTITATIVE < 1.0 MIU/ML; POTASSIUM SERUM 4.7 MEQ/L (3.5-5.1); SODIUM LEVEL 141 MEQ/L (136-145)
[2017-04-28] MEDS ORDERED: MIDAZOLAM INJ 2 MG/2 ML VIAL (J2250) As Ordered ONE (12:12)
[2017-04-28] MEDS ORDERED: fentaNYL 100 MCG/2 ML INJECTION (J3010) As Ordered ONE ×2 (12:13→13:10)
[2017-04-28] MEDS ORDERED: ACETAMINOPHEN 650 MG SUPP As Ordered ONE (12:47)
[2017-04-28] MEDS ORDERED: LIDOCAINE 1% SDV INJ 30 ML VIAL As Ordered ONE (12:47)
[2017-04-28] MEDS ORDERED: LIDOCAINE 2% INJ 100 MG/5 ML SDV (FOR ANES.) As Ordered ONE (13:13)
[2017-04-28] MEDS ORDERED: ONDANSETRON 4MG/2ML VIAL (J2405) As Ordered ONE (13:13)
[2017-04-28] MEDS ORDERED: LIDOCAINE 5% OINT 30 GM As Ordered ONE (13:13)
[2017-04-28] MEDS ORDERED: PROPOFOL 200 MG/20 ML VIAL As Ordered ONE (13:13)
[2017-04-28] MEDS ORDERED: fentaNYL 100 MCG/2 ML INJECTION (J3010) IV PRN (14:00)
[2017-04-28] MEDS ORDERED: PERCOCET 5MG/325MG TAB PO PRN (14:00)
[2017-04-28] MEDS ORDERED: ONDANSETRON 4MG/2ML VIAL (J2405) IV PRN (14:00)
[2017-04-28] MEDS ORDERED: oxyCODONE 5MG TAB As Ordered ONE (14:27)
[2017-04-28] MEDS ORDERED: oxyCODONE 5MG TAB PO ONE (14:30)
[2017-04-28 15:15] VITALS: BP 117/76
--- NOTE | 2017-05-11 05:38 | RO ---
DATE OF PROCEDURE: 04/28/2017 PREOPERATIVE DIAGNOSIS: Left recurring groin mass. POSTOPERATIVE DIAGNOSIS: Left recurring groin mass. OPERATION PROPOSED: Wide local excision of left groin mass. OPERATION PERFORMED: Wide local excision of left groin mass. SURGEON: Dr. Reji Clarke RADIOACTIVE WASTE DISPOSAL DISPATCHER: ANESTHESIA: Penile block 1% Xylocaine 5 mL and Marcaine 0.25% for intraperitoneal procedures. ESTIMATED BLOOD LOSS: Less than 1 mL. DESCRIPTION OF PROCEDURE: Under adequate time-out, prepped and draped in lithotomy position, identification of the left side, the groin area mass identified 3 x 2 cm long, had a suppurative area at the top of it. A wide local excision of that area was performed and sent off to pathology under separate cover. With a needle nose cautery, we cauterized the main blood vessels. Then, using a CT needle with a #3-0 Monocryl, we did [id number] along the total line in and left it loose enough that there would be no compression on the groin area. Local Marcaine 0.25% was then placed. Xylocaine jelly was then placed over that and a Telfa was placed over that. Then, the patient was sent to recovery in good condition.
== END 2017-04-28 15:37 | disposition home or self-care (01) ==
LOC: M SDC 10:31
PROVIDERS: ATTEND Obstetrics & Gynecology
DX: L72.0 Epidermal cyst (principal); M17.0 Bilateral primary osteoarthritis of knee; F41.9 Anxiety disorder, unspecified; F32.9 Major depressive disorder, single episode, unspecified; Z91.013 Allergy to seafood; Z79.899 Other long term (current) drug therapy; Z72.0 Tobacco use; Z87.81 Personal history of (healed) traumatic fracture; Z97.5 Presence of (intrauterine) contraceptive device
CPT/HCPCS: 11402; 36415; 80048; 84702; 85027; 87070; 87077; 87186; 88304; J2250; J2405; J3010